=== PATIENT | male | born 1990 | race Caucasian/White ===

== ENCOUNTER 2016-04-17 22:31 | Emergency (ER) | payer SELFPAY ==
[2016-04-17] MEDS ORDERED: ZOFRAN ONE (22:51)
[2016-04-17] MEDS ORDERED: VALIUM ONE (22:51)
[2016-04-17] MEDS ORDERED: VALIUM IM ONE (22:59)
[2016-04-17] MEDS ORDERED: ZOFRAN IM ONE (23:00)
[2016-04-17] MEDS ORDERED: ATIVAN ONE ×2 (23:24→23:30)
[2016-04-17] MEDS ORDERED: HALDOL ONE (23:27)
[2016-04-17] MEDS ORDERED: ATIVAN IV ONE (23:41)
[2016-04-17] MEDS ORDERED: NACL 0.9% 1000 ML 1,000 ML IV ONE (23:41)
[2016-04-17] MEDS ORDERED: DILAUDID IV ONE (23:42)
[2016-04-18] MEDS ORDERED: AFRIN NS ONE
[2016-04-18] MEDS ORDERED: XYLOCAINE TOPICAL 4% TP ONE
[2016-04-18 00:09] LABS: Hematocrit 47.4 % (35.5-45.6); Hemoglobin 16.3 gm/dl (11.8-15.2); Mean Corpuscular HGB Conc 34 % (32-34); Mean Corpuscular Hemoglobin 30 pg (28-32); Mean Corpuscular Volume 87 fl (84-94); Platelet Count 465 K/mm3 (140-440); Red Blood Count 5.44 M/mm3 (3.65-5.03); Red Cell Distribution Width 14.1 % (13.2-15.2); White Blood Count 16.9 K/mm3 (4.5-11.0)
[2016-04-18] MEDS ORDERED: BOOSTRIX IM ONE ×2 (00:13→04:40)
[2016-04-18] MEDS ORDERED: XYLOCAINE 2% INFILTRATI ONE (00:26)
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
[2016-04-18 00:39] LABS: Creatine Kinase MB 6.6 ng/mL (0.0-4.0)
[2016-04-18 00:40] LABS: BUN/Creatinine Ratio 10.83; Blood Urea Nitrogen 13 mg/dL (9-20); Calcium 10.4 mg/dL (8.4-10.2); Carbon Dioxide 16 mmol/L (22-30); Chloride 95.3 mmol/L (98-107); Creatine Kinase 697 units/L (55-170); Glucose 69 mg/dL (75-100); Potassium 4.9 mmol/L (3.6-5.0); Sodium 140 mmol/L (137-145)
[2016-04-18 00:44] LABS: Anion Gap 34 mmol/L
[2016-04-18] MEDS ORDERED: NACL 0.9% 500 ML IR ONE (01:37)
[2016-04-18] MEDS ORDERED: APRESOLINE IV ONE (01:43)
--- NOTE | 2016-04-18 01:59 | Cat Scan Report ---
FINAL REPORT PROCEDURE: CT HEAD/BRAIN WO CON TECHNIQUE: Computerized tomography of the head was performed without contrast material. HISTORY: Head lacerations COMPARISON: No prior studies are available for comparison. FINDINGS: Skull and scalp: Normal. Paranasal sinuses: Normal. Ventricles and subarachnoid spaces: Normal. Cerebrum: No evidence of hemorrhage, acute infarction or mass . Cerebellum and brainstem: No evidence of hemorrhage, acute infarction or mass. Vasculature: Normal. Comments: None. IMPRESSION: Normal Examination
--- NOTE | 2016-04-18 02:02 | Cat Scan Report ---
FINAL REPORT PROCEDURE: CT FACIAL BONES WO CON TECHNIQUE: Computerized tomography of the facial bones and soft tissues with axial and coronal sections performed from the cranial aspect of the frontal sinuses to the caudal portion of the mandible without contrast material. HISTORY: head lacerations COMPARISON: No prior studies are available for comparison. FINDINGS: Bones: There is a slightly displaced nasal bone fracture. The remainder of the osseous structures are intact without acute fracture.. Paranasal sinuses: There is mild opacification of the ethmoid and left maxillary sinus.. Soft tissues: No significant abnormality. Other: None. IMPRESSION: Slightly displaced nasal bone fracture.
[2016-04-18 04:38] LABS: Urine Drugs of Abuse Note Disclamer
[2016-04-18 04:53] LABS: Bilirubin,Urine NEG (Negative); Blood,Urine NEG (Negative); Ketones,Urine 20 mg/dL (Negative); Leukocyte Esterase,Urine NEG (Negative); Mucus,Urine FEW /HPF; Nitrite,Urine NEG (Negative); Protein,Urine <15 mg/dL mg/dL (Negative); Urobilinogen,Urine < 2.0 mg/dL (<2.0)
[2016-04-18 05:26] VITALS: BP 117/75
--- NOTE | 2016-04-18 07:25 | XRay Report ---
AP CHEST: HISTORY: chest pain AP view of the chest demonstrates a normal mediastinal and cardiac contour with clear lungs and normal bony and soft tissue structures. IMPRESSION: Unremarkable AP chest.
== END 2016-04-18 05:26 | disposition home or self-care (01) ==
LOC: ED 22:31
DX: S02.2XXA Fracture of nasal bones, initial encounter for closed fracture (principal); S01.81XA Laceration without foreign body of other part of head, initial encounter; G44.319 Acute post-traumatic headache, not intractable; E86.0 Dehydration; W22.8XXA Striking against or struck by other objects, initial encounter; Y93.89 Activity, other specified; Y99.9 Unspecified external cause status; Y92.89 Other specified places as the place of occurrence of the external cause
CPT/HCPCS: 12013; 36415; 70450; 70486; 71010; 80048; 80307; 81001; 82550; 82553; 84484; 85027; 93005; 93010; 96361; 96372; 96374; 99285; G0480; J1630; J2060; J2405; J3360; J7030; 80320; 90715